=== PATIENT | male | born 1990 | race African-American/Black ===

== ENCOUNTER 2019-03-01 22:47 | Emergency (ER) | payer OTHER ==
[~2019-03-01] VITALS: Ht 188 cm; Wt 113.4 kg
[~2019-03-01 22:47] MED LIST: IBUPROFEN600 MG ORAL; NKM; NORCO 5-325 TA1 EACH ORAL
[2019-03-01 23:14] VITALS: BP 140/68
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
[2019-03-02] MEDS ORDERED: IBUPROFEN600 MG ORAL (00:02)
--- NOTE | 2019-03-02 00:12 | NUR ---
ER DISCHARGE NOTE: Patient is cleared to be discharged per Dr. Dumont. Suture done by . Pt is aox4 on room air with stable vital signs. Pt was given dc and prescription instructions and was able to verbalize understanding. Pt ID band removed. Pt is able to ambulate with steady gait and took all belongings.
--- NOTE | 2019-03-02 09:52 | Diagnostic Imaging Report ---
Indication: Altered mental status Technique: Continuous helical transaxial imaging of the maxillofacial structures obtained without intravenous contrast administration. Coronal 2-D reformats were also obtained. Study obtained in a Siemens sensation [address] Automatic Exposure Control was utilized. Total Dose length Product (DLP): 636.[address] Dose Index Volume (CTDIvol): 28.19 mGy Comparison: None Findings: There is a comminuted fracture of the nasal bone acuity indeterminate. Soft tissue swelling is noted over the nose. Fracture deformities of the medial orbital wall noted bilaterally slightly worse on the left. Again acuity is indeterminate. These are probably old. Correlate clinically. There is soft tissue swelling over the left anterior facial region and periorbital region. The orbits appear normal. The globes are symmetric. Extraocular muscles appear symmetric. There is no retrobulbar hemorrhage. Mastoids are clear. Other osseous structures visualized including portions of the mandible appear intact. IMPRESSION: Moderate facial and left periorbital soft tissue contusion. Multiple fractures identified with indeterminate acuity. Component of the nasal fracture may be acute. Bilateral lamina paprycea fractures are probably old. [facility] has communicated the preliminary results to the Emergency Department. Their findings are largely concordant with this report. The CT scanner at [facility] is accredited by the [employer] and the scans are performed using dose optimization techniques as appropriate to a performed exam including Automatic Exposure control.
== END 2019-03-02 00:12 | disposition home or self-care (01) ==
LOC: EMR 23:45
DX: S01.511A Laceration without foreign body of lip, initial encounter (principal); S00.12XA Contusion of left eyelid and periocular area, initial encounter; S02.2XXA Fracture of nasal bones, initial encounter for closed fracture; S02.32XA Fracture of orbital floor, left side, initial encounter for closed fracture; Y04.8XXA Assault by other bodily force, initial encounter; F17.200 Nicotine dependence, unspecified, uncomplicated
CPT/HCPCS: 12041; 70486; 99284; Z7502

== ENCOUNTER 2019-03-13 22:09 | Emergency (ER) | payer OTHER ==
[~2019-03-13] VITALS: Ht 182.9 cm; Wt 113.4 kg
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
[2019-03-13 22:21] VITALS: BP 132/77
[2019-03-13 22:31] VITALS: BP 132/77
--- NOTE | 2019-03-13 22:31 | Emergency Room Report ---
History of Present Illness General Chief Complaint: Wound Recheck/Suture Removal Source: Patient Present Illness HPI Patient presents for removal of sutures in the lower lip The initial injury occurred on March 01 Patient feels of the area has been healing well One of the sutures did come out by itself Patient denies any discharge denies any pain denies any redness Allergies: Coded Allergies: No Known Allergies (Unverified , 07/16/16) Patient History Past Medical History: see triage record Pertinent Family History: none Reviewed Nursing Documentation: PMH: Agreed; PSxH: Agreed Nursing Documentation-PMH Past Medical History: No Stated History Review of Systems All Other Systems: negative except mentioned in HPI Physical Exam Vital Signs Date Time Temp Pulse Resp B/P (MAP) Pulse Ox O2 Delivery O2 Flow Rate FiO2 03/13/19 22:13 98.2 63 18 141/83 (102) 96 Room Air Sp02 EP Interpretation: reviewed, normal General Appearance: well appearing, no apparent distress Head: normocephalic, atraumatic Eyes: bilateral eye PERRL, bilateral eye EOMI ENT: other - For visible sutures in lower lip Neck: supple Respiratory: lungs clear Cardiovascular #1: regular rate, rhythm Gastrointestinal: non tender Musculoskeletal: normal inspection Neurologic: alert, oriented x3 Psychiatric: normal inspection Skin: other - Area in question in the lower lip appears to be healing well, no obvious dehiscence no erythema or swelling Lymphatic: no adenopathy Medical Decision Making Diagnostic Impression: Primary Impression: Encounter for wound re-check Additional Impression: suture removal ER Course After initial evaluation 2 sutures from the inner aspect of the laceration removed area continues to look appropriate without any dehiscence and 2 more sutures were removed after that Area continues to look well and patient will have outpatient follow-up Last Vital Signs Date Time Temp Pulse Resp B/P (MAP) Pulse Ox O2 Delivery O2 Flow Rate FiO2 03/13/19 22:21 98.0 80 18 132/77 98 Room Air Status: improved Disposition: HOME, SELF-CARE Condition: Improved Referrals: [facility] Patient Instructions: Wound Check, Suture Removal, Care After Additional Instructions: Patient is provided with the discharge instructions notified to follow up with primary doctor in the next 2-3 days otherwise return to the er with any worsening symptoms. Please note that this report is being documented using [employer]ptive [employer] technology. This can lead to erroneous entry secondary to incorrect interpretation by the dictating instrument. Tai Mckeon DO March 13, 2019 22:31
--- NOTE | 2019-03-13 22:32 | NUR ---
ER DISCHARGE NOTE: Patient is cleared to be discharged per ERMD, pt is aox4, on room air, with stable vital signs. pt was given dc and prescription instructions, pt was able to verbalize understanding, pt id band removed without complications. pt is able to ambulate with steady gait. pt took all belongings.
== END 2019-03-13 22:50 | disposition home or self-care (01) ==
LOC: EMR 22:29
DX: Z48.02 Encounter for removal of sutures (principal)
CPT/HCPCS: 99281